=== PATIENT | male | born 1995 | race Asian ===

== ENCOUNTER 2021-01-03 15:48 | Emergency (ER) | payer SELFPAY ==
[~2021-01-03] VITALS: Ht 162.6 cm; Wt 100.0 kg
[2021-01-03 15:59] VITALS: BP 150/90
[2021-01-03 18:08] LABS: BASOPHILS % 0.6 % (0.0-2.0); EOSINOPHILS % 0.7 % (0.0-5.0); HEMATOCRIT. 49.2 % (42.0-52.0); LYMPHOCYTES % 12.6 % (20.0-50.0); MEAN CORPUSCULAR HEMOGLOBIN 29.2 pg (28.0-32.0); MEAN CORPUSCULAR VOLUME 84.4 fL (80.0-94.0); MEAN PLATELET VOLUME 7.6 fl (7.4-10.4); MONOCYTES % 5.7 % (2.0-8.0); NEUTROPHILS % 80.4 % (40.0-76.0); PLATELET 319 x1000/uL (130-400); RED BLOOD CELL COUNT 5.83 mill/uL (4.7-6.1); RED CELL DISTRIBUTION WIDTH 12.7 % (11.6-14.6)
[2021-01-03 18:14] LABS: CHLORIDE 107 mEq/L (98-107)
[2021-01-03 19:30] LABS: CLARITY URINE CLEAR (CLEAR); COLOR URINE YELLOW (YELLOW); KETONES URINE TRACE (NEGATIVE); LEUKOCYTE ESTERASE URINE NEGATIVE (NEGATIVE); NITRITE URINE NEGATIVE (NEGATIVE); OCCULT BLOOD URINE 1+ (NEGATIVE); PH URINE 6.5 (4.5-8.0); PROTEIN URINE TRACE (NEGATIVE); SPECIFIC GRAVITY URINE 1.017 (1.005-1.030)
[2021-01-03] MEDS ORDERED: IOHEXOL-300 100 ML BOTTLE ONE (21:57)
== END 2021-01-04 00:36 | disposition home or self-care (01) ==
LOC: ER 15:48
DX: K76.0 Fatty (change of) liver, not elsewhere classified (principal); R10.9 Unspecified abdominal pain
CPT/HCPCS: 36415; 74177; 76705; 80048; 80076; 81003; 83690; 85025; 93005; 99285; Q9967; Z7610